=== PATIENT | female | born 1990 | race African-American/Black ===

== ENCOUNTER 2024-10-05 18:37 | Emergency (ER) | payer BC, SELFPAY ==
--- NOTE | ~2024-10-05 | US_ITS ---
Pelvic ultrasound. Clinical History: First trimester , vaginal bleeding Technique: Realtime transabdominal and transvaginal scanning of the pelvis was performed. Color flow Doppler and Doppler spectral analysis were performed. Findings: The uterus is retroverted, and contains an intrauterine gestational sac. Average sac diamet er of 1.4 cm corresponds to an estimated gestational age of 6 weeks 2 days. Yolk sac present without definite pole. The right ovary measures 3.7 x 2.2 x 2.7 cm. Simple right ovarian cyst measures 2.4 cm in maximum tere meter. The left ovary measures 2.7 x 1.2 x 0.9 cm. No significant left ovarian or adnexal mass is seen. There is a small amount of free fluid in the cul de sac. Impression: Intrauterine gestational sac with estimated gestational age of 6 weeks 2 days by average sac diameter . Yolk sac present without definite visible pole. Diagnostic considerations include early ruthy l versus blighted ovum/missed . Correlate clinically. Continued follow-up with seri al beta hCG advised. Consider short-term follow-up ultrasound as indicated. Small amount of free fluid, nonspecific. Reviewed, dictated and finalized at location [facility] Impression: Intrauterine gestational sac with estimated gestational age of 6 weeks 2 days b y average sac diameter. Yolk sac present without definite visible pole. D iagnostic considerations include early normal versus blighted ovum/mi ssed . Correlate clinically. Continued follow-up with serial beta hCG a dvised. Consider short-term follow-up ultrasound as indicated. Small amount of free fluid, nonspecific.
[2024-10-05 18:54] VITALS: BP 136/72; PULSE 91; RESP 20; TEMP 36.3; O2SAT 100
--- NOTE | 2024-10-05 22:22 | ED_ITS ---
HPI - Female Genitourinary General Chief complaint: Vaginal Bleeding Stated complaint: 9 weeks vag bleeding Time Seen by Provider: 10/05/24 22:15 Source: patient Mode of arrival: ambulatory Limitations: no limitations History of Present Illness HPI Narrative: This is a 34-year-old female who presents to the ED for chief complaint of episode of vaginal bleeding today. Reports that she is approximately 9 weeks , G 2p1. States that she has never had a miscarriage. Patient states that she will be following with OB in [place]. Reports today after she woke up from a nap she noticed a wet sensation, and realize she was having some bright red blood. She does reports seeing a couple small clots. States that she has not been having any bleeding since then. Denies preceding sexual intercourse. States she states that she has had some slight abdominal cramping but no severe pain. Denies associated nausea, vomiting, lightheadedness, syncope, back pain, vaginal discharge or urinary symptoms. Related Data Allergies Allergy/AdvReac Type Severity Reaction Status Date / Time Penicillins Allergy Intermediate rash Verified 10/05/24 18:56 Review of Systems 2 Review of Systems: All systems as dictated in HPI Exam 2 Narrative: GENERAL: Well-appearing, well-nourished, and in no acute distress. HEAD: Normocephalic, atraumatic. EYES: PERRLA and EOMI. ENT: Nares clear, no rhinorrhea or epistaxis. Mucous membranes moist. Oropharynx without tonsillar hypertrophy exudate or other lesions. NECK: Supple. No adenopathy or masses. CHEST: No respiratory distress. Clear to auscultation. No wheezes rales or rhonchi HEART: Regular rate and rhythm. No murmur heard. Normal peripheral pulses. ABDOMEN: Soft, nontender, nondistended, normal active bowel sounds. MSK: Normal range of motion. No edema. SKIN: Warm, dry, no rash. NEURO: Alert and oriented x4. No focal deficits. PSYCH: Normal mood and affect. Course Vital Signs Vital signs: Vital Signs Temperature 97.4 F L 10/05/24 18:54 Pulse Rate 91 10/05/24 18:54 Respiratory Rate 20 10/05/24 18:54 Blood Pressure 136/72 10/05/24 18:54 Pulse Oximetry 100 10/05/24 18:54 Oxygen Delivery Room Air 10/05/24 18:54 Temperature 97.4 F L 10/05/24 18:54 Pulse Rate 91 10/05/24 18:54 Respiratory Rate 20 10/05/24 18:54 Blood Pressure 136/72 10/05/24 18:54 Pulse Oximetry 100 10/05/24 18:54 Oxygen Delivery Room Air 10/05/24 18:54 MDM - Female Genitourinary MDM Narrative Medical decision making narrative: This is a 34-year-old female who presents to the ED for chief complaint of vaginal bleeding starting 1 hour prior to arrival. She did have some slight cramping as well. No previous OB visits for this that is estimated at 9 weeks. She is . Vitals are normal. Exam is benign. She is resting comfortably. Lab work shows normal white count and normal hemoglobin on CBC. Rh status positive. No need for RhoGAM today. Ultrasound OB: Impression: Single live intrauterine gestation with sonographic age of 6 weeks 2 days. Yolk sac visualized. No definite pole. Normal ovaries with vascular flow. Right ovary a luteal cyst. Presentation consistent with threatened miscarriage. Discussed the above findings with patient and she will follow-up with OB. Patient will be discharged in stable condition. Supportive measures discussed and return precautions given. Patient is understanding and agreeable with plan for discharge with PCP/OB follow-up. Lab Data 10/05/24 22:42 10/05/24 22:42 Labs: Lab Results 10/05/24 Range/Units 22:42 WBC 7.9 (4.5-10.0) K/mm3 RBC 4.14 L (4.2-5.4) M/mm3 Hgb 12.0 (12.0-15.0) g/dL Hct 36.9 L (37.0-47.0) % MCV 89.1 (80-100) fl MCH 29.0 (26-34) pg MCHC 32.5 (32-36) g/dl RDW 13.6 (11.5-14.5) % Plt Count 395 H (150-375) k/mm3 MPV 9.3 (7.4-10.4) fl Immature Gran % (Auto) 0.3 (0-0.5) % Neut % (Auto) 52.5 (45.5-73.1) % Lymph % (Auto) 35.8 (18.3-44.2) % [place] % (Auto) 9.0 H (2.6-8.5) % Eos % (Auto) 2.3 (0-4.4) % Baso % (Auto) 0.1 L (0.2-1.2) % Lymph # (Auto) 2.83 (0.9-3.2) K/mm3 [place] # (Auto) 0.7 H (0.1-0.6) K/mm3 Eos # (Auto) 0.2 (0-0.3) K/mm3 Baso # (Auto) 0.0 (0.0-0.1) K/mm3 Abs Immat Gran (auto) 0.02 (0.00-0.031) K/mm3 Absolute Neuts (auto) 4.2 (1.3-6.7) K/mm3 Absolute Nucleated RBC 0.000 (0.0-0.012) K/mm3 Nucleated RBC % 0.0 (0.0-0.2) % PT 12.8 (11.1-14.7) Seconds INR 0.9 APTT 25.4 (22.3-36.8) Seconds Sodium 137 (137-145) mmol/L Potassium 4.2 (3.4-5.0) mmol/L Chloride 102 (98-107) mmol/L Carbon Dioxide 22 (22-30) mmol/L Anion Gap 13 H (4-12) mmol/L BUN 15 (7-17) mg/dL Creatinine 0.72 (0.7-1.0) mg/dL Estim Creat Clear Calc 144 ml/min Estimated GFR > 60 (59 - ) Glucose 101 (65-110) mg/dL Calcium 9.3 (8.4-10.2) mg/dL Total Bilirubin 0.5 (0.2-1.3) mg/dL AST 22 (14-36) U/L ALT 19 (6-35) U/L Alkaline Phosphatase 80 (38-126) U/L Total Protein 8.0 (6.3-8.2) g/dL Albumin 4.5 (3.5-5.1) g/dL Beta HCG, Quant 10307.00 mIU/ML Blood Type O Positive Antibody Screen Negative Screen TNP Baby's Blood Type TNP Baby's AKIRA Not Reportable Doses of RhIg Required 0 Discharge Plan Discharge Clinical Impression: Miscarriage, threatened, early Patient Disposition: Home, Self-Care Condition: Stable Instructions: Antibiotic Form Additional Instructions: Your exam today does show intrauterine gestation. There is still concern for the possibility of a miscarriage with vaginal bleeding. Please follow-up closely with OB office on this issue. The probably will want to check labs. If you have any new or worsening symptoms please return to the ER for further evaluation. Patient Language: [place] Follow-up/Referrals: PHYSICIAN NOT ON STAFF,NONSTAFF [Primary Care Provider] - Time of Disposition: 01:24
--- OUTSIDE RECORDS SUMMARY | 2024-10-05 22:31 | XMS_ITS | Patient Health Summary ---
Author Organization [facility] real[employer] Address [address] [place] [address] Care Team Providers Care Supervisor Sulfuric Acid Plant Name Role Phone Monik Merida MD Primary Care Provider Note from [facility],non-owned Affiliates and Associated Physician Practices is amultiple site organization consisting of ambulatory clinics and hospital sitesin [place], [place], [place] and [place]. This disclosure is being madepursuant to the Care Everywhere program and may not contain all information available regarding this patient. Last updated 18.[facility] Allergies * Penicillins(Nausea and/or Vomiting,Rash) -Medium Criticality Medications * Be aware that medications may not be up to date on this document. Alwaysverify current medications with the patient. * traZODone (Desyrel) 50 MG tablet 1 (one) tablet * VITAMIN B COMPLEX-C PO * glucosamine-chondroitin 500-400 MG tablet Take 1 (one) tablet by mouth 3 times daily * cyanocobalamin 100 MCG tablet Take 1 (one) tablet by mouth once daily * cetirizine (ZyrTEC) 10 MG tablet Take 1 (one) tablet by mouth once daily * Misc Natural Products (Glucosamine Chond Cmp Advanced) TABS(Started 08/01/2021) Take 2 capsules by mouth once daily * vitamin D, ergocalciferol, (Drisdol) 1.25 MG (34562 UT) capsule(Started 10/11/2023) Take 1 (one) capsule by mouth every 7 days Reasons: Vitamin D Deficiency Active Problems Problem Noted Date Diagnosed Date Class 3 severe obesity due t o excess calories with serious comorbidity and body mass index (BMI) of 40.0 to 44.9 in adult 11/08/2022 Non-seasonal allergic rhinitis due to fungal spo res 11/08/2022 Immunizations * COVID PFIZER 12+YR 30MCG/0.3mL(Given 07/27/2023) * Covid Pfizer primary monovalent 12+ yr 0.3mL Purple cap(Given 07/28/2021) * DTAP, HISTORIC VACCINE(Given 10/24/2017) * INFLUENZA VACCINE(Given 07/20/2023) * INFLUENZA VACCINE, QUADR. (FLUZONE; FLULAVAL; FLUARIX; AFLURIA QUADRIVALENT; 6MO+), 0.5 ML (IIV4)(Given 07/27/2023) * iNFLUENZA VACCINE, RECOM-YUEN, QUADR. (FLUBLOCK QUADRIVALENT; 18Y+) (RIV4)(Given 08/01/2021) Social History Tobacco Use Types Packs/Day Years Used Date Smoking Tobacco: Never Passive Smoke Exposure: Never Smokeless Tobacco: Never Tobacco Cessation:Counseling Given: Not Answered Alcohol Use Standard Drinks/Week Comments Yes 0 (1 standard drink = 0.6 oz pur e alcohol) PHQ-2 Answer Date Recorded Patient Health Questionnaire-2 Score 0 10/05/2023 Education Answer Date Recorded What is the highest level of school you have completed or the highest degree you have received? Master's degree (e.g., MA, MS, Fabiola, MEd, CLINICAL SYSTEMS ANALYST, TRESSA) 10/05/2023 Sex and Gender Information Value Date Recorded Sex Assigned at Female 11/01/2022 9:34 AM CDT Gender Identity Female 11/01/2022 9:34 AM CDT Sexual Orientation Straight 11/01/2022 9: 34 AM CDT Last Filed Vital Signs Vital Sign Reading Time Taken Comments Blood Pressure 118/70 10/05/2023 11:28 AM SHIRRING MACHINE OPERATOR AUTOMATIC Pulse 74 10/05/2023 11:28 AM SHIRRING MACHINE OPERATOR AUTOMATIC Temperature 36.6 C (97.9 F) 10/05/2023 11:28 AM SHIRRING MACHINE OPERATOR AUTOMATIC Respiratory Rate - - Oxygen Saturation 99% 10/05/2023 11:28 AM SHIRRING MACHINE OPERATOR AUTOMATIC Inhaled Oxygen Concentration - - Weight 136.1 kg (300 lb) 10/05/2023 11:28 AM SHIRRING MACHINE OPERATOR AUTOMATIC Height 180.3 cm (5' 11 ) 10/05/2023 11:28 AM SHIRRING MACHINE OPERATOR AUTOMATIC Body Mass Index 41.84 10/05/2023 11:28 AM SHIRRING MACHINE OPERATOR AUTOMATIC Procedures * HCG BETA BLOOD QUANTITATIVE(Performed 10/10/2023) Performed for Missed period * INTERPRETATION REFLEXED(Performed 10/10/2023) Performed for Screen for STD (sexually transmitted disease) * HEPATITIS B SURFACE ANTIBODY(Performed 10/10/2023) Performed for Need for hepatitis B screening test * TSH REFLEX FREE T4(Performed 10/10/2023) Performed for Thyroid disorder screen * HIV-1 HIV-2 ANTIBODY + HIV P24 AG PANEL(Performed 10/10/2023) Performed for Screen for STD (sexually transmitted disease) * HEPATITIS C ANTIBODY W RFLX PCR(Performed 10/10/2023) Performed for Screen for STD (sexually transmitted disease) * HEMOGLOBIN A1C(Performed 10/10/2023) Performed for Diabetes mellitus screening * VITAMIN D 25-HYDROXY(Performed 10/10/2023) Performed for Encounter for vitamin deficiency screening * CBC W AUTO DIFFERENTIAL(Performed 10/10/2023) Performed for Screening for deficiency anemia * COMPREHENSIVE METABOLIC PANEL(Performed 10/10/2023) Performed for History of hyperkalemia, Body mass index (BMI) of 40.0 to 44.9 in adult ([facility]) * LIPID PROFILE(Performed 10/10/2023) Performed for Lipid screening * BASIC METABOLIC PANEL (CALCIUM TOTAL)(Performed 11/10/2022) Performed for Hyperkalemia * VITAMIN D 25-HYDROXY(Performed 11/08/2022) Performed for Encounter for routine adult physical exam with abnormal findings * HEMOGLOBIN A1C W EAG(Performed 11/08/2022) Performed for Encounter for routine adult physical exam with abnormal findings * CBC W AUTO DIFFERENTIAL(Performed 11/08/2022) Performed for Encounter for routine adult physical exam with abnormal findings * TSH(Performed 11/08/2022) Performed for Encounter for routine adult physical exam with abnormal findings * LIPID PROFILE(Performed 11/08/2022) Performed for Encounter for routine adult physical exam with abnormal findings * COMPREHENSIVE METABOLIC PANEL(Performed 11/08/2022) Performed for Encounter for routine adult physical exam with abnormal findings Results * HCG BETA BLOOD QUANTITATIVE (10/10/2023 10:11 AM SHIRRING MACHINE OPERATOR AUTOMATIC) hCG Value <1 mIU/mL [facility] ACCOUNT BILL Comment: Female (Non-) 0 - 5 (Postmenopausal) 0 - 8 . Female () Weeks of Gestation 3 6 - 71 4 10 - 750 5 428 - 0286 6 158 - 18605 7 [phone] 8 53434 -[phone] 9 [phone] -[phone] 10 [phone] -[phone] 12 00231 -[phone] 14 92402 - 08432 15 92472 - 05906 16 9040 - 76236 17 8175 - 15110 18 2099 - 85701 Gian ECLIA methodology Blood BLOOD SPECIMEN / Unknown 10/10/2023 10:11 AM SHIRRING MACHINE OPERATOR AUTOMATIC 10/10/2023 Narrative Resulting Agency Comment Lab Testing performed at: [facility] [address] [facility] [id number] Ginny Reagan APRN-CORPORATE PHYSICAL SECURITY SUPERVISOR LAB - CHEMISTRY ORDERABLES [facility] ACCOUNT BILL [address] [place] [address] * INTERPRETATION REFLEXED (10/10/2023 10:10 AM SHIRRING MACHINE OPERATOR AUTOMATIC) Interpretation [facility] ACCOUNT BILL Comment: Not infected with HCV unless early or acute infection is suspected (which may be delayed in an immunocompromised individual), or other evidence exists to indicate HCV infection. 10/10/2023 10:1 0 AM SHIRRING MACHINE OPERATOR AUTOMATIC 10/10/2023 Narrative Resulting Agency Comment Lab Testing performed at: [facility] [address] [place] [address] [phone] Ginny GUADALUPECORPORATE PHYSICAL SECURITY SUPERVISOR LAB - SEROLOGY O RDERABLES [facility] ACCOUNT BILL [address] [place] [address] * HEPATITIS C ANTIBODY W RFLX PCR (10/10/2023 10:10 AM SHIRRING MACHINE OPERATOR AUTOMATIC) Hepatitis C Antibody Non Reactive Non Reactive [facility] ACCOUNT BILL Blood BLOOD SPECIMEN / Unknown 10/10/2023 10:10 AM SHIRRING MACHINE OPERATOR AUTOMATIC 10/10/2023 Narrative Resulting Agency Comment Lab Testing performed at: [facility] [address] [place] [address] [phone] Ginny Reagan APRN-CORPORATE PHYSICAL SECURITY SUPERVISOR LAB - CHEMISTRY ORDERABLES Performing Organization Address [facility] Co de Phone Number [facility] ACCOUNT BILL [address] [place] [address] * HIV-1 HIV-2 ANTIBODY + HIV P24 AG PANEL (10/10/2023 10:10 AM SHIRRING MACHINE OPERATOR AUTOMATIC) HIV Screen 4th Generation w Reflex Non Reactive Non Reactive [facility] ACCOUNT BILL Comment: HIV Negative HIV-1/HIV-2 antibodies and HIV-1 p24 antigen were NOT detected. There is no laboratory evidence of HIV infection. Blood BLOOD SPECIMEN / Unknown 10/10/2023 10:10 AM SHIRRING MACHINE OPERATOR AUTOMATIC 10/10/2023 Narrative Resulting Agency Comment Lab Testing performed at: [facility] [facility] [phone] Ginny Reagan LEAD PRINCIPAL TECHNICAL ARCHITECT-CORPORATE PHYSICAL SECURITY SUPERVISOR LAB - CHEMISTRY ORDERABLES Performing Organization Address [facility] de Phone Number [facility] ACCOUNT BILL [address] [place] [address] * TSH REFLEX FREE T4 (10/10/2023 10:10 AM SHIRRING MACHINE OPERATOR AUTOMATIC) Pathologist [facility] TSH 3.480 0.450 - 4.500 uIU/mL [facility] ACCOUNT BILL Blood BLOOD SPECIMEN / Unknown 10/10/2023 10:10 AM SHIRRING MACHINE OPERATOR AUTOMATIC 10/10/2023 Narrative Resulting Agency Comment Lab Testing performed at: [facility] [address] [facility] [phone] Ginny Reagan LEAD PRINCIPAL TECHNICAL ARCHITECT-CORPORATE PHYSICAL SECURITY SUPERVISOR LAB - CHEMISTRY ORDERABLES Performing Organization Address [facility] Co de Phone Number [facility] ACCOUNT BILL [address] [place] [address] * HEMOGLOBIN A1C (10/10/2023 10:10 AM SHIRRING MACHINE OPERATOR AUTOMATIC) Hemoglobin A1c 5.5 4.8 - 5.6 % [facility] ACCOUNT BILL Comment: . Prediabetes: 5.7 - 6.4 Diabetes: >6.4 Glycemic control for adults with diabetes: <7.0 Blood BLOOD SPECIMEN / Unknown 10/10/2023 10:10 AM SHIRRING MACHINE OPERATOR AUTOMATIC 10/10/2023 Narrative Resulting Agency Comment Lab Testing performed at: [facility] [address] [facility] [phone] Ginny M Tez LEE-CORPORATE PHYSICAL SECURITY SUPERVISOR LAB - CHEMISTRY ORDERABLES [facility] ACCOUNT BILL [address] [place] [address] * (ABNORMAL) VITAMIN D 25-HYDROXY (10/10/2023 10:10 AM SHIRRING MACHINE OPERATOR AUTOMATIC) Only the most recent of2 resultswithin the time period is included. Vitamin D, 25 Hydroxy 27.7(L) 30.0 - 100.0 ng/mL [facility] ACCOUNT BILL Comment: Vitamin D deficiency has been defined by the [place] of Medicine and an Endocrine Society practice guideline as a level of serum 25-OH vitamin D less than 20 ng/mL (1,2). The Endocrine Society went on to further define vitamin D insufficiency as a level between 21 and 29 ng/mL (2). 1. IOM ([place] of Medicine). 2010. Dietary reference intakes for calcium and D. [place]: The National Academies Press. 2. Juan MF, Enrrique [place], July YUEN, et al. Evaluation, treatment, and prevention of vitamin D deficiency: an Endocrine Society clinical practice guideline. JCEM. 2010; 96(7):1911-30. Blood BLOOD SPECIMEN / Unknown 10/10/2023 10:10 AM SHIRRING MACHINE OPERATOR AUTOMATIC 10/10/2023 Narrative Resulting Agency Comment Lab Testing performed at: [facility] [address] [facility] [phone] Ginny Reagan LEAD PRINCIPAL TECHNICAL ARCHITECT-CORPORATE PHYSICAL SECURITY SUPERVISOR LAB - CHEMISTRY ORDERABLES [facility] ACCOUNT BILL [address] [place] [address] * CBC WITH DIFFERENTIAL (10/10/2023 10:10 AM SHIRRING MACHINE OPERATOR AUTOMATIC) Only the most recent of2 resultswithin the time period is included. WBC 6.1 3.4 - 10.8 x10E3/uL [facility] ACCOUNT BILL RBC 4.28 3.77 - 5.28 x10E6/uL [facility] ACCOUNT BILL Hemoglobin 12.1 11.1 - 15.9 g/dL [facility] ACCOUNT BILL Hematocrit 38.0 34.0 - 46.6 % [facility] ACCOUNT BILL MCV 89 79 - 97 fL [facility] ACCOUNT BILL MCH 28.3 26.6 - 33.0 pg [facility] ACCOUNT BILL MCHC 31.8 31.5 - 35.7 g/dL [facility] ACCOUNT BILL RDW 13.1 11.7 - 15.4 % [facility] ACCOUNT BILL Platelet Count 385 150 - 450 x10E3/uL [facility] ACCOUNT BILL Granulocytes % 45 Not Estab. % [facility] ACCOUNT BILL Lymphocytes % 42 Not Estab. % [facility] ACCOUNT BILL Monocytes % 8 Not Estab. % [facility] ACCOUNT BILL Eosinophils % 4 Not Estab. % [facility] ACCOUNT BILL Basophils % 0 Not Estab. % [facility] ACCOUNT BILL Immature Cells NOT AVAILABLE [facility] ACCOUNT BILL Comment:Result cannot be obt ained for this observation. Granulocytes Absolute 2.8 1.4 - 7.0 x10E3/uL [facility] ACCOUNT BILL Lymphocytes Absolute 2.5 0.7 - 3.1 x10E3/uL [facility] ACCOUNT BILL Monocytes Absolute 0.5 0.1 - 0.9 x10E3/uL [facility] ACCOUNT BILL Eosinophils Absolute 0.2 0.0 - 0.4 x10E3/uL [facility] ACCOUNT BILL Basophils Absolute 0.0 0.0 - 0.2 x10E3/uL [facility] ACCOUNT BILL Immature Granulocytes 1 Not Estab. % [facility] ACCOUNT BILL Immature Granulocytes Absolute 0.1 0.0 - 0.1 x10E3/uL [facility] ACCOUNT BILL nRBC NOT AVAILABLE [facility] ACCOUNT BILL Comment:Result cannot be obt ained for this observation. Comment Hematology NOT AVAILABLE [facility] ACCOUNT BILL Comment:Result cannot be obt ained for this observation. Blood BLOOD SPECIMEN / Unknown 10/10/2023 10:10 AM SHIRRING MACHINE OPERATOR AUTOMATIC 10/10/2023 Narrative Resulting Agency Comment Lab Testing performed at: [facility] [id number] Ginny Reagan LEAD PRINCIPAL TECHNICAL ARCHITECT-CORPORATE PHYSICAL SECURITY SUPERVISOR LAB - HEMATOLOGY ORDERABLES [facility] ACCOUNT BILL [address] [place] [address] * COMPREHENSIVE METABOLIC PANEL (10/10/2023 10:10 AM SHIRRING MACHINE OPERATOR AUTOMATIC) Only the most recent of2 resultswithin the time period is included. Pathologist [facility] Glucose 96 70 - 99 mg/dL [facility] ACCOUNT BILL BUN 14 6 - 20 mg/dL [facility] ACCOUNT BILL Creatinine 0.94 0.57 - 1.00 mg/dL [facility] ACCOUNT BILL eGFR by CKD-EPI 82 >59 mL/min/1.7 3 [facility] ACCOUNT BILL BUN/Creatinine Ratio 15 9 - 23 [facility] ACCOUNT BILL Sodium 141 134 - 144 mmol/L [facility] ACCOUNT BILL Potassium 5.0 3.5 - 5.2 mmol/L [facility] ACCOUNT BILL Chloride 102 96 - 106 mmol/L [facility] ACCOUNT BILL CO2 23 20 - 29 mmol/L [facility] ACCOUNT BILL Calcium 9.8 8.7 - 10.2 mg/dL [facility] ACCOUNT BILL Protein Total 7.6 6.0 - 8.5 g/dL [facility] ACCOUNT BILL Albumin 4.6 3.9 - 4.9 g/dL [facility] ACCOUNT BILL Globulin Total 3.0 1.5 - 4.5 g/dL [facility] ACCOUNT BILL Albumin/Globulin Ratio 1.5 1.2 - 2.2 [facility] ACCOUNT BILL Bilirubin Total 0.3 0.0 - 1.2 mg/dL [facility] ACCOUNT BILL Alkaline Phosphatase 96 44 - 121 IU/L [facility] ACCOUNT BILL AST 17 0 - 40 IU/L [facility] ACCOUNT BILL ALT 19 0 - 32 IU/L [facility] ACCOUNT BILL Blood BLOOD SPECIMEN / Unknown 10/10/2023 10:10 AM SHIRRING MACHINE OPERATOR AUTOMATIC 10/10/2023 Narrative Resulting Agency Comment [facility] [address] [facility] [phone] Ginny Reagan APRN-CORPORATE PHYSICAL SECURITY SUPERVISOR LAB - CHEMISTRY ORDERABLES [facility] ACCOUNT BILL [address] [place] [address] * HEPATITIS B SURFACE ANTIBODY (10/10/2023 10:10 AM SHIRRING MACHINE OPERATOR AUTOMATIC) Hepatitis B Virus Surface Antibody Reactive [facility] ACCOUNT BILL Comment: Non Reactive: Inconsistent with immunity, less than 10 mIU/mL Reactive: Consistent with immunity, greater than 9.9 mIU/mL Blood BLOOD SPECIMEN / Unknown 10/10/2023 10:10 AM SHIRRING MACHINE OPERATOR AUTOMATIC 10/10/2023 Narrative Resulting Agency Comment [facility] [address] [facility] [phone] Ginny Reagan LEAD PRINCIPAL TECHNICAL ARCHITECT-CORPORATE PHYSICAL SECURITY SUPERVISOR LAB - CHEMISTRY ORDERABLES [facility] ACCOUNT BILL [address] [place] [address] * (ABNORMAL) LIPID PROFILE (10/10/2023 10:10 AM SHIRRING MACHINE OPERATOR AUTOMATIC) Only the most recent of2 resultswithin the time period is included. Cholesterol 181 100 - 199 mg/dL [facility] ACCOUNT BILL Triglycerides 83 0 - 149 mg/dL [facility] ACCOUNT BILL HDL Cholesterol 57 >39 mg/dL [facility] ACCOUNT B[facility] VLDL Calculated 15 5 - 40 mg/dL [facility] ACCOUNT BILL LDL Calculated 109(H) 0 - 99 mg/dL [facility] ACCOUNT BILL Comment NOT AVAILABLE [facility] ACCOUNT BILL Comment:Result cannot be obt ained for this observation. Blood BLOOD SPECIMEN / Unknown 10/10/2023 10:10 AM SHIRRING MACHINE OPERATOR AUTOMATIC 10/10/2023 Narrative Resulting Agency Comment [facility]: [facility] [address] [facility] [phone] Ginny Reagan LEAD PRINCIPAL TECHNICAL ARCHITECT-CORPORATE PHYSICAL SECURITY SUPERVISOR LAB - CHEMISTRY ORDERABLES [facility] ACCOUNT BILL [address] [place] [address] * BASIC METABOLIC PANEL (BMP) (11/10/2022 1:19 PM CDT) Glucose 90 70 - 99 mg/dL [facility] ACCOUNT BILL BUN 12 6 - 20 mg/dL [facility] ACCOUNT BILL Creatinine 0.91 0.57 - 1.00 mg/dL [facility] ACCOUNT BILL eGFR by CKD-EPI 85 >59 mL/min/1.7 3 [facility] ACCOUNT BILL BUN/Creatinine Ratio 13 9 - 23 [facility] ACCOUNT BILL Sodium 138 134 - 144 mmol/L [facility] ACCOUNT BILL Potassium 4.9 3.5 - 5.2 mmol/L [facility] ACCOUNT BILL Chloride 101 96 - 106 mmol/L [facility] ACCOUNT BILL CO2 24 20 - 29 mmol/L [facility] ACCOUNT BILL Calcium 9.6 8.7 - 10.2 mg/dL [facility] ACCOUNT BILL Blood BLOOD SPECIMEN / Unknown 11/10/2022 1:19 PM CDT 11/10/2022 Narrative Resulting Agency Comment Lab Testing performed at: [facility] [place] [id number] [facility] [phone] Yvette Wilson MD LAB - CHEMISTRY YESSENIA HAMMER [facility] ACCOUNT BILL [address] [place] [address] * HEMOGLOBIN A1C W EAG (11/08/2022 9:19 AM CDT) Hemoglobin A1c 5.0 <5.7 % [facility] ACCOUNT BILL Estimated Average Glucose 97 mg/dL [facility] ACCOUNT BILL Comment: HbA1c Interpretation: Normal: < 5.7% Pre-diabetes: 5.7-6.4% Diabetes: Equal to or greater than 6.5% Test results diagnostic of diabetes should be repeated for c onfirmation. Treatment target values recommended by ADA and other clinica l organizations should be used to evaluate metabolic control in patients. This test should not replace glucose testing for patients wi th Type 1 diabetes, pediatric patients, or women. Falsely low HbA The [place] [employer] [employer] assay for the measurement of HbA1c is a National Glycohemoglobin Standardization Program (NGSP) certified method. Blood BLOOD SPECIMEN / Unknown 11/08/2022 9:19 AM CDT 11/08/2022 Narrative Resulting Agency Comment Lab Testing performed at: [facility] [place] [address] [address] [place] [phone] Yvette Wilson MD LAB - CHEMISTRY YESSENIA HAMMER [facility] ACCOUNT BILL [address] [place] [address] * TSH (11/08/2022 9:19 AM CDT) TSH 1.5344 0.35 - 4.94 uIU/mL [facility] ACCOUNT BILL Blood BLOOD SPECIMEN / Unknown 11/08/2022 9:19 AM CDT 11/08/2022 Narrative Resulting Agency Comment Lab Testing performed at: [address] [place] [phone] Yvette Wilson MD LAB - CHEMISTRY YESSENIA HAMMER [facility] ACCOUNT BILL [address] [place] [address] Care Teams Supervisor Sulfuric Acid Plant Relationship Specialty Start Date End Date Monik Merida MD [address] [place] [id number] PCP - General Internal Medicine 10/05/23
--- OUTSIDE RECORDS SUMMARY | 2024-10-05 22:31 | XMS_ITS | Referral Summary ---
Author Organization [facility] Address [facility] [place] [address] Care Team Providers Care Lineman A Class Name Role Phone Unknown, Notinfile Primary Care Provider Unavail able Allergies Active Allergy Reactions Criticality Noted Date Comments Penicillins Rash Medium 04/17/2021 She also reports trouble breathing. Medications vitamin B complex tablet extended release Take by mouth Active multivitamin with minerals tablet Take 1 tablet by mouth daily Active cetirizine (ZyrTEC) 10 mg tablet Take 1 tablet (10 mg total) by mouth daily Active cholecalciferol (VITAMIN D-3) 50,000 unit capsule Take 1 capsule (50,000 Units total) by mouth every 7 days 10/11/2023 Active cyanocobalamin (Vitamin B-12) 100 mcg tablet Take 1 tablet (100 mcg total) by mouth daily Active glucosam-chond- hrb 149-hyal ac (Glucos Chond Cplx Advanced) 750 mg-100 mg- 125 mg-1.65 mg tablet Take 2 capsules by mouth daily 08/01/2021 Active Active Problems No known active problems Social History Tobacco Use Types Packs/Day Years Used Date Smoking Tobacco: Never Smokeless Tobacco: Never AUDIT-C Answer Date Recorded Q1: How often do you have a drink containing alc ohol? Monthly or less 10/03/2021 Average Number of Drinks Not on file 022 Q3: How often do you have si x or more drinks on one occasion? Never 10/03/2021 Personal Safety Answer Date Recorded Getting School Help Needed Not on file 10/04 Comments No Sex and Gender Information Value Date Recorded Sex Assigned at Not on file Legal Sex Female 9:17 AM CDT Gender Identity Not on file Sexual Orientation Not on file Last Filed Vital Signs Vital Sign Reading Time Taken Comments Blood Pressure 114/73 10/03/2021 2:17 PM LEVEL VIAL SETTER Pulse - - Temperature - - Respiratory Rate - - Oxygen Saturation - - Inhaled Oxygen Concentration - - Weight 137.5 kg (303 lb 3.2 oz) 024 11:12 AM LEVEL VIAL SETTER Height 177.8 cm (5' 10 ) 10/25/2023 11: 12 AM LEVEL VIAL SETTER Body Mass Index 43.5 10/25/2023 11:12 AM LEVEL VIAL SETTER Plan of Treatment Not on file Procedures Procedure Name Priority Date/Time Associated Diagnosis Comments PAP AND HIGH RISK HPV, REFLEX TO GENOTYPING Routine 10/25/2023 11:16 AM LEVEL VIAL SETTER Encounter for annual routine gynecological examination from Last 3 Months or Most Recently Relevant to Health Maintenance Results * Pap and High Risk HPV and Genotyping (Cytology Component) (10/25/2023 11:16 AM LEVEL VIAL SETTER) Endocervical (Pap test) 10/25/2023 11:16 AM LEVEL VIAL SETTER 10/25/2023 7:59 PM LEVEL VIAL SETTER Narrative PATHOLOGY [facility] - 10/31/2023 8:25 AM CDT EPIC results best viewed via link to PDF [facility] [place] [address] Note to Patients: This report may contain a detailed description of human tissue sent by a health care provider to the laboratory for pathologic evaluation. The content of this report is essential for diagnosis and may provide important critical findings. This information may be unfamiliar to patients to review without a medical professional present. It is advised that the patient review this report in the presence of a health care provider who can answer questions and explain the details. CYTOPATHOLOGY REPORT FINAL Patient Name: AUSTIN STRONG Gender: F : 1990 (Age: 33) Address: [address] [place] [id number] Hospital #: [id number] Service: DEFAULT Location: Patient Type: [facility] SPECIMEN Taken: 10/25/2023 Received: 10/25/2023 Accessioned: 10/26/2023 Reported: 10/31/2023 Physician(s): Meg Stevenson CNM FINAL INTERPRETATION SOURCE OF SPECIMEN Liquid based Thin Prep pap with HPV: STATEMENT OF ADEQUACY - Satisfactory for evaluation - Endocervical cells/transformation zone sample present GENERAL CATEGORIZATION: - Negative for squamous intraepithelial lesion or malignancy Comments (Normal-Negative for High Risk HPV) HPV HR 16- Not detected HPV HR 18-Not detected HPV HR non 16/18- Not detected Interpretive Data Nucleic acid amplification for detection of high-risk Human Papilloma virus (HPV) is performed by the Gian Saskia 6800 HPV test. This assay specifically detects HPV- 16 and HPV-18 genotypes. The following HPV genotypes are detected as high-risk HPV: HPV-31, 33, 35, 39, 45, 51, 52, 56, 58, 59, 66, and 68. This assay has been approved by the United States Food and Drug Administration for detection of HPV in cervical specimens collected by a physician using an endocervical brush/spatula or cervical broom and placed in the ThinPrep Pap Test PreservCyt collection containers. The performance characteristics of this test have been verified by the [facility] Molecular Infectious Disease laboratory. Correlate with reported cytology results, as applicable. Interpretive data last revised 23 [facility]/10/31/2023 08:25 ISAIAH Aragon(ASCP) Report Electronically Reviewed and Signed Out By ISAIAH Aragon([facility]) 10/31/2023 08:25:43 Cervicovaginal Cytology (Pap Test) Disclaimer: The Pap test is a screening test used to detect cervical cancer and its precursors; it is not a diagnostic procedure. False negative and false positive results do occur. Pap test results should be interpreted in the context of pertinent clinical information and biopsy results as indicated. CMS Clinical Laboratory Improvement Amendments (CLIA) mandate that cytologic and histologic results be correlated for laboratory quality eng & improvement standards. FOR ALL HIGH-GRADE CASES we request submission of follow-up histological material and/or reports that have not been previously provided so that we may fulfill said required standards. Gross Description A. Liquid based Thin Prep pap with HPV: Cervical/vaginal - Screening ThinPrep Clinical Diagnosis and History Last Menstrual Period: 10/05/23 The patient is a 33 year old woman with 1 wnl per patient. Report Images and scanned documents, if included only viewable in PDF version The performance characteristics of some immunohistochemical stains, in-situ hybridization and fluorescence in-situ hybridization tests and immunophenotyping by flow cytometry cited in this report (if any) were determined by the Surgical Pathology Department at [facility] as part of an ongoing quality control tech raw materials program and in compliance with federally mandated regulations drawn from the Clinical Laboratory Improvement Act of 1988 (CLIA '88). Some of these tests rely on the use of analyte specific reagents and are subject to specific labeling requirements by the US Food and Drug Administration. Such diagnostic tests may only be performed in a facility that is certified by the Department of Health and Human Services as a high complexity laboratory under CLIA '88. The FDA has determined that such clearance or approval is not necessary. This test is used for clinical purposes. It should not be regarded as investigational or for research. Nevertheless, federal rules concerning the medical use of analyte specific reagents require that the following disclaimer be attached to the report: This test was developed and its performance characteristics determined by the Surgical Pathology Department of [facility]. It has not been cleared or approved by the U. S. Food and Drug Administration. Meg WALTER LAB CYTOLOGY ORDERABLES Final Result Performing Organization Address City/State/[facility] Co de Phone Number PATHOLOGY [facility] from Last 3 Months or Most Recently Relevant to Health Maintenance Insurance [facility] CHOICE PLUS [facility] HMO/PPO Address: [facility] [address] [place] [address] [employer] Care Teams Lineman A Class Relationship Specialty Start Date End Date Unknown, Notinfile PCP - General 08/18/21
--- OUTSIDE RECORDS SUMMARY | 2024-10-05 22:31 | XMS_ITS | Clinical Summary ---
Author Organization [facility] Address formerly [facility] [place] [address] Care Team Providers Care Parer Name Role Phone Unknown, Notinfile Primary Care [...] Active Active Problems No known active problems Family History Medical History Relation Name Comments Breast cancer Neg Hx Relation Name Status Comments Father Alive Mother Alive Sister Alive Social History Tobacco Use Types Packs/Day Years [...] on file Sexual Orientation Not on file Obstetrics History Para Term AB IAB SAB Ectopic Multiple Livin g Live Births 1 1 1 1 Date Outcome GA Total Labor Labor/2nd/3rd Weight Sex Type Anes PTL Kimberly A1 A5 Name Clin 2018 Term M Vag-Spo nt Last Filed Vital Signs Vital Sign Reading Time Taken Comments Blood Pressure 114/73 10/03/2021 2:17 PM LINE PRODUCTION COOK Pulse - - Temperature - - Respiratory Rate - - Oxygen Saturation - - Inhaled Oxygen Concentration - - Weight 137.5 kg (303 lb 3.2 oz) 024 11:12 AM LINE PRODUCTION COOK Height 177.8 cm (5' 10 ) 10/25/2023 11: 12 AM LINE PRODUCTION COOK Body Mass Index 43.5 10/25/2023 11:12 AM LINE PRODUCTION COOK Plan of Treatment Health Maintenance Due Date Last Done Comments Depression Screening 1990 Hepatitis C Screening 1990 Varicella Vaccines (1 of 2 - 13+ 2-dose series) 2002 Hepatitis B Screening 2007 Covid-19 Vaccine ( season) 2024 07/27/2023, 07/28/2021, 11/01/2020, Additional history exists Influenza Vaccine (#1) 2024 , 07/20/2023, 08/01/2021 Cervical Cancer Screening 10/24/20242023, 10/25/2023, 10/03/2021 Regular Well Visit/Exam 18-64 10/24/2024 10/25/2023, 10/03/2021 DTaP/Tdap/Td Vaccine (3 - Td or Tdap) 10/25/2027 10/24/2017, 06/17/2008 HPV Vaccines Aged Out No longer eligi ble based on patient's age to complete this topic Pneumococcal vaccine <65 Aged Out No longer eligible based on patient's age to complete this topic Procedures Procedure Name Priority Date/Time Associated Diagnosis Comments PAP AND HIGH RISK HPV, REFLEX TO GENOTYPING Routine 10/25/2023 11:16 AM LINE PRODUCTION COOK Encounter for annual routine gynecological examination from Last 3 Months or Most Recently Relevant to Health Maintenance Results * Pap and High Risk HPV and Genotyping (Cytology Component) (10/25/2023 11:16 AM LINE PRODUCTION COOK) Endocervical (Pap test) 10/25/2023 11:16 AM LINE PRODUCTION COOK 10/25/2023 7:59 PM LINE PRODUCTION COOK Narrative PATHOLOGY [facility] - 10/31/2023 8:25 AM CDT EPIC results best viewed via link to PDF [facility] [place] [address] Note to Patients: This report may contain [...] the details. CYTOPATHOLOGY REPORT FINAL Patient Name: JESSICA STRONG Gender: F : 1990 (Age: 33) Address: [address] [place], [place] [id number] Hospital #: [id number] Service: DEFAULT Location: Patient Type: [facility] SPECIMEN Taken: 10/25/2023 Received: 10/25/2023 Accessioned: [...] this test have been verified by the [facility] Molecular Infectious Disease laboratory. Correlate with reported cytology results, as applicable. Interpretive data last revised 23 osie/10/31/2023 08:25 ISAIAH Aragon(ASCP) Report Electronically Reviewed and Signed Out By ISAIAH Aragon([facility]) 10/31/2023 08:25:43 Cervicovaginal Cytology (Pap Test) Disclaimer: The Pap test is a screening test used to detect cervical cancer and its precursors; it is not a diagnostic procedure. False negative and false positive results do occur. Pap test results should be interpreted in the context of pertinent clinical information and biopsy results as indicated. [facility] Clinical Laboratory Improvement Amendments (CLIA) mandate that cytologic and histologic results be correlated for laboratory quality control expert & improvement standards. FOR ALL HIGH-GRADE CASES we request submission of follow-up histological material and/or reports that have not been previously provided so that we may fulfill said required standards. Gross Description A. Liquid based Thin Prep pap with HPV: Cervical/vaginal - Screening ThinPrep Clinical Diagnosis and History Last Menstrual Period: 10/05/23 The patient is a 33 year old woman with 2021 wnl per patient. Report Images and scanned documents, if included only viewable in PDF version The performance characteristics of some immunohistochemical stains, in-situ hybridization and fluorescence in-situ hybridization tests and immunophenotyping by flow cytometry cited in this report (if any) were determined by the Surgical Pathology Department at [facility] as part of an ongoing auditor/quality program and in compliance with federally mandated [...] determined by the Surgical Pathology Department of [facility]. It has not been cleared or approved by the U. S. Food and Drug Administration. Meg Stevenson CNM LAB CYTOLOGY ORDERABLES Final Result [facility] from Last 3 Months or Most Recently Relevant to Health Maintenance Insurance [facility] CHOICE PLUS [facility] HMO/PPO Address: [address] [address] [place] [address] [employer] O[employer] Care Teams Parer Relationship Specialty Start Date End Date Unknown, Notinfile PCP - General 08/18/21
--- OUTSIDE RECORDS SUMMARY | 2024-10-05 22:31 | XMS_ITS | Continuity of Care Document ---
Author Organization [facility] Address [address] [place] [address] Phone Care Team Providers Care Player Development Executive Name Role Phone Annika Hatfield Unavailable Unavailable Allergies, Adverse Reactions, Alerts Substance Reaction Status Criticality Penicillins Unknown Active No Information Medications Medication Instructions Dosage Effective Dates (start - stop) Status Comments Cipro 500 mg Tab 1 daily x single dose - Active doxycycline 100 mg Cap Take one tablet by mouth twice per day x 7D - Active Flagyl 500 mg Tab Take one tablet by mouth twice per day - Active Diflucan 150 mg Tab 1 daily - Active Procedures Procedure Date Offic/outpt E&m Estab Low-mod 7 Hcg, Urine Urine GC Urine Chlamydia Urinalysis Wet Prep Exam Level 3 New Patient Wet Prep Advance Directives Directive Yes / No Effective Date File Name No Information Encounters Encounter Description Practice Location Reason(s) For Visit Diagnoses Date Provider Providers Copied on Encounter [facility], [address] [facility] [place], [id number], [place] tel:[phone] [facility] No Information David Roblero. [address] [facility] [place] [id number], [place]. tel:[phone] [facility], [address] [facility] [place], [id number], [place] tel:[phone] [facility] No Information No Information Offic/outpt E&m Estab Low-mod [facility], [address] [facility] [place], [id number], [place] tel:[phone] [facility] vaginal discharge (chief complaint) No Information No Information Exam Level 3 New Patient [facility], [address] [place] [address] [place], [id number], [place] tel:[phone] [facility] vaginal discharge X 1 week (chief complaint) No Information Alexandria Smyth. [address] [facility] [place], [id number], [place]. tel:[phone] Family History Family Member Type Diagnosis Age At Onset No Information Payers Payer name Insurance type Covered libertarian ID Authoriza ticrystal(s) [facility] [id number] Social History Type Description Quantity Date Captured Comments Sex Female Smoking Status No Information Chief Complaint And Reason For Visit No Information Reason For Referral Reason For Referral No Information History Of Present Illness Encounter Date Complaint History Of Prese nt Illness No Information Functional Status Date Functional Assessmen t No Information Instructions Date Instruction Additional Infor mation No Information Assessments Type Assessment Date No Information Patient Care Teams Name Effective Dates (start - stop) Status Members No Information
--- OUTSIDE RECORDS SUMMARY | 2024-10-05 22:31 | XMS_ITS | Continuity of Care Document ---
Author Organization [facility] Address [address] [place] [address] Phone Care Team Providers Care Supervisor [employer] Name Role Phone Pura Khan MD Unavailable Unavailabl e Allergies, Adverse Reactions, Alerts Substance Reaction Status Criticality PENICILLIN Active No Information Medications Medication Instructions Dosage Effective Dates (start - stop) Status Comments Glucosamine Chondroit Complx Advan 750 mg-100 mg-125 mg-1.65 mg tablet take 2 capsules daily - Active Amethia 0.15 mg-30 mcg (84)/10 mcg(7) tablets,3 month dose pack take 1 tablet by oral route every day 1.00 tablet - Active Procedures Procedure Date NUTRITIONAL THERAPY; INITIAL ASSESSMENT AND INTERVENTION, INDIVIDUAL, EACH 15 [address] BODY MASS INDEX DOCD FALL RISK ASSESSMENT DOC'D PRES/ABSN URINE INCON ASSESS Brief Emotional/Behavioral A ssessment, With Scoring/Doct, Per Stndrd Instrument Pt inelig neg scrn depres IMMUN ADMIN (INC PERCUTANEOUS) SINGLE, F IRST INJ Flu Vac, quad (RIV4), Preservative And A ntibiotic Free IM CBC, INC PLATELETS AND DIFFERENTIAL COMPREHEN METABOLIC PANEL CMP HEPATITIS C ANTIBODY HEMOGLOBIN A1C HGA1C, GLYCO LIPID PANEL ROUTINE VENIPUNCTURE OFFICE [id number] BODY MASS INDEX DOCD SYST BP LT 130 MM HG DIAST BP < 80 MM HG Advance Directives Directive Yes / No Effective Date File Name Life Support Not Answered N/A N/A Intubation Not Answered N/A N/A Antibiotics Not Answered N/A N/A IV Fluid Support Not Answered N/A N/A Tube Feed Not Answered N/A N/A Other Directive N/A N/A WARNING:The information contained in this section is historical and is provided for information only and does not constitute a legal document or any assurance that the information is still accurate. Please verify the information with the james of the legal document before using it for clinical purposes. Encounters Encounter Description Practice Location Reason(s) For Visit Diagnoses Date Provider Providers Copied on Encounter [facility], [address], [place], [place], [id number] , tel: [phone] [facility] No Information 4 Jesus Alberto Neves. [address], [place], [id number] , [place]. tel: [phone] [facility], [address], [place], [place], [id number] , [place] tel: [phone] [facility] Internal Medicine Dietary counseling and surveillanceBody mass index [BMI] 40.0-44.9, adult 2 Tito Welch. [address] [address], [place], [place], [id number] , [place]. tel: [phone] Referring Provider: Pura Reeder, [address] [facility], [place], [address] . tel:[phone] OFFICE [id number] CRYSTAL [facility], [address], [place], [place], [id number] , tel: [phone] [facility] Office visit // New Pt (chief complaint) Health care maintenanceMorbid obesityScreening for diabetes mellitusEncounter for hepatitis C screening test for low risk patientEncounter for well woman exam 1 Jesus Alberto Neves. [address], [place], [id number] , . tel:[phone] Referring Provider: Pura Reeder, [address] [place], [address] . tel:[phone] Family History Family Member Type Diagnosis Age At Onset No Information Immunizations Vaccine Date Status Comments Flublok, quadrivalent, preservative free, 0.5mL dosage administered Source: New Immuniza tion Record Pfizer ([employer]il[employer]con[employer] d) COVID19 Vaccine, 0.3mL per dose, 2 doses, administered 21 days apart administered Source: Public Agenc y Pfizer (Dil[employer] Recon[employer] d) COVID19 Vaccine, 0.3mL per dose, 2 doses, administered 21 days apart administered Source: Public Agenc y Pfizer ([employer]) COVID19 Vaccine, 0.3mL per dose, 2 doses, administered 21 days apart administered Source: Public Agenc y Tdap administered Source: Public Agency Payers Payer name Insurance type Covered constitution party ID Authoriza tion(s) [facility] CI [id number] [facility] CI [id number] Social History Type Description Quantity Date Captured Comments Alcohol Use Details Unknown Caffeine Use Details Unknown Tobacco Use Status No Information Smoking Status No Information Sex Female Chief Complaint And Reason For Visit No Information Reason For Referral Reason For Referral No Information Plan Of Treatment Date Type Action Status Referral Referred To: Kirstin Woodward MD [address] [place] [address]
[address] [place], [phone] Ordered: Referrals: Obstetrics and Gynecology. Kirstin Woodward MD. Evaluation/diagnostic/treatment - Level 3 ordered History Of Present Illness Encounter Date Complaint History Of Prese nt Illness Office visit // New Pt Pt is her e to [facility]. She has recently moved from [place]. She is and have a 3 yo son. She has been working on weight loss 'She has no c/o today Functional Status Date Functional Assessmen t No Information Instructions Date Instruction Additional Infor mation Check A1c Related to Guilherme mehta for diabetes mellitus Check hep C Related to Odilia purdy for hepatitis C screening test for low risk patient Refer to gyne. On Am etrhia for bp. No menses since on long acting BP.last pap done 2019 and was normal Related to Health care maintenance Refer to dietitian. Encouraged weight loss. Related to Morbid obesity Assessments Type Assessment Date No Information Patient Care Teams Name Effective Dates (start - stop) Status Members No Information
--- OUTSIDE RECORDS SUMMARY | 2024-10-05 22:31 | XMS_ITS | Clinical Summary ---
Author Organization [facility] [employer] Address [address] [place] [address] Care Team Providers Care Bottom Crane Operator Name Role Phone Monik Merida MD Primary Care Provider Source Comments [facility] [employer],non-owned Affiliates and Associated Physician Practices is amultiple site organization consisting of ambulatory clinics and hospital sitesin [place], [place], [place] and [place]. This disclosure is being madepursuant to the Care Everywhere program and may not contain all information available regarding this patient. Last updated 18.[facility] [employer] Allergies Active Allergy Reactions Criticality Noted Date Comments Penicillins Nausea and/or Vomiting,Rash Medium 023 Medications * Be aware that medications may not be up to date on this document. Always verify current medications with the patient. Medication Sig Dispensed Refills Start Date End Date Status traZODone (Desyrel) 50 MG tablet 1 (one) tablet Active VITAMIN B COMPLEX-C PO Active glucosamine-chondro itin 500-400 MG tablet Take 1 (one) tablet by mouth 3 times daily Active cyanocobalamin 100 MCG tablet Take 1 (one) tablet by mouth once daily Active cetirizine (ZyrTEC) 10 MG tablet Take 1 (one) tablet by mouth once daily Active Misc Natural Products (Glucosamine Chond Cmp Advanced) TABS Take 2 capsules by mouth once daily 08/01/2021 Active vitamin D, ergocalciferol, (Drisdol) 1.25 MG (49659 UT) capsuleIndications: Vitamin D Deficiency Take 1 (one) capsule by mouth every 7 days Reasons: Vitamin D Deficiency 12 capsule 10/11/2023 Active Active Problems Problem Noted Date Diagnosed Date Class 3 severe obesity due t o excess calories with serious comorbidity and body mass index (BMI) of 40.0 to 44.9 in adult 11/08/2022 Non-seasonal allergic rhinitis due to fungal spo res 11/08/2022 Immunizations Name Administration Dates Next Due COVID PFIZER 12+YR 30MCG/0.3mL 07/27/2023 Covid Pfizer primary monovalent 12+ yr 0.3mL Pur ple cap 07/28/2021 DTAP, HISTORIC VACCINE 10/24/2017 INFLUENZA VACCINE 07/20/2023 INFLUENZA VACCINE, QUADR. (F LUZONE; FLULAVAL; FLUARIX; AFLURIA QUADRIVALENT; 6MO+), 0.5 ML (IIV4) 07/27/2023 iNFLUENZA VACCINE, RECOM-YUEN, QUADR. (FLUBLOCK QUADRIVALENT; 18Y+) (RIV4) 08/01/2021 Family History Medical History Relation Name Comments None Known Father CVA Maternal Grandfather Cancer Maternal Grandfather Throat Diabetes - Type 2 Maternal Grandfather Anxiety Disorder Maternal Grandmother Dementia Maternal Grandmother Depression Maternal Grandmother None Known Mother Other Sister adopted Relation Name Status Comments Father Alive Maternal Grandfather Maternal Grandmother Alive Mother Alive Sister Alive Social History [...] Master's degree (e.g., MA, MS, Fabiola, MEd, RN DIABETES EDUCATOR, TRESSA) 10/05/2023 Sex and Gender Information Value Date Recorded Sex Assigned at Female 11/01/2022 9:34 AM CDT Gender Identity Female 11/01/2022 9:34 AM CDT Sexual Orientation Straight 11/01/2022 9: 34 AM CDT Last Filed Vital Signs Vital Sign Reading Time Taken Comments Blood Pressure 118/70 10/05/2023 11:28 AM MULTI LINE CLAIMS ADJUSTER Pulse 74 10/05/2023 11:28 AM MULTI LINE CLAIMS ADJUSTER Temperature 36.6 C (97.9 F) 10/05/2023 11:28 AM MULTI LINE CLAIMS ADJUSTER Respiratory Rate - - Oxygen Saturation 99% 10/05/2023 11:28 AM MULTI LINE CLAIMS ADJUSTER Inhaled Oxygen Concentration - - Weight 136.1 kg (300 lb) 10/05/2023 11:28 AM MULTI LINE CLAIMS ADJUSTER Height 180.3 cm (5' 11 ) 10/05/2023 11:28 AM MULTI LINE CLAIMS ADJUSTER Body Mass Index 41.84 10/05/2023 11:28 AM MULTI LINE CLAIMS ADJUSTER Plan of Treatment Health Maintenance Due Date Last Done Comments HEPATITIS B VACCINE (1 of 3 - 19+ 3-dose series) 2008 COVID-19 VACCINE (3 - 2023-2 5 season) 2024 07/27/2023, 07/28/2021 INFLUENZA VACCINE (#1) 2024 , 07/20/2023, 08/01/2021 DEPRESSION SCREENING 08/20/2024 10/05/2023, 11/09/19 23 PAP SMEAR 10/03/2024 10/03/2021 (Done Outside Per Report) DTAP/TDAP/TD VACCINES (2 - Tdap) 10/25/2027 10/24/2017 ZOSTER VACCINE (1 of 2) 2039 HEPATITIS C SCREENING Completed 10/10/2023 HIV SCREENING Completed 10/10/2023 HIB VACCINE Aged Out No longer eligi ble based on patient's age to complete this topic HPV VACCINE Aged Out No longer eligi ble based on patient's age to complete this topic MENINGOCOCCAL (Group B) VACCINE Aged Out No longer eligible based on patient's age to complete this topic MENINGOCOCCAL VACCINE Aged Out No petey maria teresa eligible based on patient's age to complete this topic PNEUMOCOCCAL VACCINE Aged Out No long er eligible based on patient's age to complete this topic Procedures Procedure Name Priority Date/Time Associated Diagnosis Comments HEPATITIS C ANTIBODY W RFLX PCR Routine 10/10/2023 10:10 AM MULTI LINE CLAIMS ADJUSTER Screen for STD (sexually transmitted disease) HIV-1 HIV-2 ANTIBODY + HIV P24 AG PANEL Routine 10/10/2023 10:10 AM MULTI LINE CLAIMS ADJUSTER Screen for STD (sexually transmitted disease) from Last 3 Months or Most Recently Relevant to Health Maintenance Results * HEPATITIS C ANTIBODY W RFLX PCR (10/10/2023 10:10 AM MULTI LINE CLAIMS ADJUSTER) Hepatitis C Antibody Non Reactive Non Reactive [facility] ACCOUNT BILL Blood BLOOD SPECIMEN / Unknown 10/10/2023 10:10 AM MULTI LINE CLAIMS ADJUSTER 10/10/2023 Narrative Resulting Agency Comment Lab Testing performed at: [facility] [place] [address] [phone] Ginny Reagan METAL PRECISION MACHINE ASSEMBLER-SUPERVISOR DIALS LAB - CHEMISTRY ORDERABLES [facility] ACCOUNT BILL [address] [place] [address] * HIV-1 HIV-2 ANTIBODY + HIV P24 AG PANEL (10/10/2023 10:10 AM MULTI LINE CLAIMS ADJUSTER) HIV Screen 4th Generation w Reflex Non Reactive Non Reactive [facility] ACCOUNT BILL Comment: HIV Negative HIV-1/HIV-2 antibodies and HIV-1 p24 antigen were NOT detected. There is no laboratory evidence of HIV infection. Blood BLOOD SPECIMEN / Unknown 10/10/2023 10:10 AM MULTI LINE CLAIMS ADJUSTER 10/10/2023 Narrative Resulting Agency Comment Lab Testing performed at: [facility] [address] [id number] Ginny Reagan METAL PRECISION MACHINE ASSEMBLER-SUPERVISOR DIALS LAB - CHEMISTRY ORDERABLES Performing Organization Address City/[facility] Co de Phone Number [facility] ACCOUNT BILL [address] [place] [address] from Last 3 Months or Most Recently Relevant to Health Maintenance Care Teams Bottom Crane Operator Relationship Specialty Start Date End Date Monik Merida MD [facility] [place] [place] [address] PCP - General Internal Medicine 10/05/23
--- OUTSIDE RECORDS SUMMARY | 2024-10-05 22:31 | XMS_ITS | Referral Summary ---
Author Organization [facility] [employer] Address [address] [address] Care Team Providers Care Solidworks Designer Name Role Phone Monik Merida MD Primary Care Provider Source Comments [facility],non-owned Affiliates and Associated Physician Practices is amultiple site organization consisting of ambulatory clinics and hospital sitesin [place], [place], [place] and [place]. This disclosure is being madepursuant to the Care Everywhere program and may not contain all information available regarding this patient. Last updated 18.[facility] [employer] Allergies Active Allergy Reactions Criticality Noted Date Comments Penicillins Nausea and/or Vomiting,Rash Medium 023 Medications * Be aware that medications may not be up to date on this document. Alwaysverify current medications with the patient. Medication Sig [...] Active vitamin D, ergocalciferol, (Drisdol) 1.25 MG (57013 UT) capsuleIndications: Vitamin D Deficiency Take 1 [...] RECOM-YUEN, QUADR. (FLUBLOCK QUADRIVALENT; 18Y+) (RIV4) 08/01/2021 Social History Tobacco Use Types Packs/Day Years [...] Master's degree (e.g., MA, MS, Fabiola, MEd, SEWAGE DISPOSAL WORKER, TRESSA) 10/05/2023 Sex and Gender Information Value Date Recorded Sex Assigned at Female 11/01/2022 9:34 AM CDT Gender Identity Female 11/01/2022 9:34 AM CDT Sexual Orientation Straight 11/01/2022 9: 34 AM CDT Last Filed Vital Signs Vital Sign Reading Time Taken Comments Blood Pressure 118/70 10/05/2023 11:28 AM NEWS PHOTOGRAPHER Pulse 74 10/05/2023 11:28 AM NEWS PHOTOGRAPHER Temperature 36.6 C (97.9 F) 10/05/2023 11:28 AM NEWS PHOTOGRAPHER Respiratory Rate - - Oxygen Saturation 99% 10/05/2023 11:28 AM NEWS PHOTOGRAPHER Inhaled Oxygen Concentration - - Weight 136.1 kg (300 lb) 10/05/2023 11:28 AM NEWS PHOTOGRAPHER Height 180.3 cm (5' 11 ) 10/05/2023 11:28 AM NEWS PHOTOGRAPHER Body Mass Index 41.84 10/05/2023 11:28 AM NEWS PHOTOGRAPHER Plan of Treatment Not on file Procedures Procedure Name Priority Date/Time Associated Diagnosis Comments HEPATITIS C ANTIBODY W RFLX PCR Routine 10/10/2023 10:10 AM NEWS PHOTOGRAPHER Screen for STD (sexually transmitted disease) HIV-1 HIV-2 ANTIBODY + HIV P24 AG PANEL Routine 10/10/2023 10:10 AM NEWS PHOTOGRAPHER Screen for STD (sexually transmitted disease) from Last 3 Months or Most Recently Relevant to Health Maintenance Results * HEPATITIS C ANTIBODY W RFLX PCR (10/10/2023 10:10 AM NEWS PHOTOGRAPHER) Hepatitis C Antibody Non Reactive Non Reactive [facility] ACCOUNT BILL Blood BLOOD SPECIMEN / Unknown 10/10/2023 10:10 AM NEWS PHOTOGRAPHER 10/10/2023 Narrative Resulting Agency Comment Lab Testing performed at: [facility] [phone] Ginny Reagan APRN-ACREAGE REPORTER LAB - CHEMISTRY ORDERABLES Performing Organization Address City/[facility] Co de Phone Number [facility] ACCOUNT BILL [address] [place] [address] * HIV-1 HIV-2 ANTIBODY + HIV P24 AG PANEL (10/10/2023 10:10 AM NEWS PHOTOGRAPHER) HIV Screen 4th Generation w Reflex Non Reactive Non Reactive [facility] ACCOUNT BILL Comment: HIV Negative HIV-1/HIV-2 antibodies and HIV-1 p24 antigen were NOT detected. There is no laboratory evidence of HIV infection. Blood BLOOD SPECIMEN / Unknown 10/10/2023 10:10 AM NEWS PHOTOGRAPHER 10/10/2023 Narrative Resulting Agency Comment Lab Testing performed at: [place] [address] [facility] [id number] Ginny Reagan APRN-ACREAGE REPORTER LAB - CHEMISTRY ORDERABLES [facility] ACCOUNT BILL [address] [place] [address] from Last 3 Months or Most Recently Relevant to Health Maintenance Care Teams Solidworks Designer Relationship Specialty Start Date End Date Monik Merida MD [address] [place] [address] PCP - General Internal Medicine 10/05/23
[2024-10-05 22:48] LABS: Basophils Percent Auto 0.1 % (0.2-1.2); Eosinophils Absolute Auto 0.2 K/mm3 (0-0.3); Eosinophils Percent Auto 2.3 % (0-4.4); Hematocrit 36.9 % (37.0-47.0); Immature Granulocyte Absolute 0.02 K/mm3 (0.00-0.031); Immature Granulocyte Percent A 0.3 % (0-0.5); Lymphocytes Absolute Auto 2.83 K/mm3 (0.9-3.2); Lymphocytes Percent Auto 35.8 % (18.3-44.2); Mean Corpuscular HGB Conc 32.5 g/dl (32-36); Mean Corpuscular Volume 89.1 fl (80-100); Mean Platelet Volume 9.3 fl (7.4-10.4); Monocytes Absolute Auto 0.7 K/mm3 (0.1-0.6); Neutrophils Absolute Auto 4.2 K/mm3 (1.3-6.7); Neutrophils Percent Auto 52.5 % (45.5-73.1); Platelet Count Result 395 k/mm3 (150-375); Red Blood Count 4.14 M/mm3 (4.2-5.4); Red Cell Distribution Width 13.6 % (11.5-14.5); White Blood Count 7.9 K/mm3 (4.5-10.0)
[2024-10-05 22:59] LABS: Alanine Aminotransferase 19 U/L (6-35); Albumin Level 4.5 g/dL (3.5-5.1); Alkaline Phosphatase 80 U/L (38-126); Anion Gap 13 mmol/L (4-12); Aspartate Amino Transferase 22 U/L (14-36); Bilirubin,Total 0.5 mg/dL (0.2-1.3); Blood Urea Nitrogen 15 mg/dL (7-17); Calcium 9.3 mg/dL (8.4-10.2); Carbon Dioxide 22 mmol/L (22-30); Chloride 102 mmol/L (98-107); Estimated CRCL calculation 144 ml/min; Estimated Glomerular Filt Rate > 60; Glucose 101 mg/dL (65-110); Potassium 4.2 mmol/L (3.4-5.0); Sodium 137 mmol/L (137-145)
[2024-10-05 23:02] LABS: INR 0.9; Prothrombin Time 12.8 Seconds (11.1-14.7)
[2024-10-05 23:03] LABS: Partial Thromboplastin Time 25.4 Seconds (22.3-36.8)
[2024-10-06 01:56] VITALS: BP 130/68; PULSE 97; RESP 16; O2SAT 100
== END 2024-10-06 02:07 | disposition home or self-care (01) ==
PROVIDERS: Emergency Provider Physician Assistant
DX: O20.0 Threatened abortion (principal); Z3A.01 Less than 8 weeks gestation of pregnancy
CPT/HCPCS: 36415; 76801; 76817; 80053; 84702; 85025; 85461; 85610; 85730; 86850; 86900; 86901; 99284